=== PATIENT | male | born 1985 | race Caucasian/White ===

== ENCOUNTER 2016-07-19 14:15 | Emergency (ER) | payer OTHER ==
[~2016-07-19] VITALS: Ht 182.9 cm; Wt 101.0 kg
[~2016-07-19 14:15] MED LIST: CATAPRES0.1 MG PO; CIPRO500 MG PO; DILAUDID2 MG PO; FLEXERIL10 MG PO; FLOMAX0.4 MG PO; IBUPROFEN800 MG PO; MIRALAX17 GM PO; MOTRIN600 MG PO; MULTI-VITAMIN1 EAC3 PO; NAPROSYN500 MG PO; NAPROXEN500 MG PO; PERCOCET 5/31 TABLET PO; PHENAZOPYRIDIN200 MG PO; PRILOSEC40 MG PO; TORADOL10 MG PO; TRAZODONE HCL50 MG PO; TYLENOL WITH C1 EACH PO; ULTRAM50 MG PO; ZOFRAN ODT4 MG PO; ZOFRAN4 MG PO
[2016-07-19] MEDS ORDERED: OMEPRAZOLE40 M1 PO (14:52)
[2016-07-19 15:14] LABS: HEMATOCRIT 46.4 % (38.0-50.0); MCH 33.3 PG (29.0-34.0); MCHC 36.2 G/DL (30.0-36.0); MCV 92.1 FL (86-99); MEAN PLAT.VOLUME 8.7 uM^3 (9.0-12.4); PLATELET COUNT 245 K/uL (156-360); RBC DIS.WIDTH-CV 12.2 % (11.8-14.6); RBC DIS.WIDTH-SD 41.4 % (39-53); RED BLOOD COUNT 5.04 M/uL (4.00-5.50); WHITE BLOOD COUNT 8.3 K/uL (4.1-10.2)
[2016-07-19 15:27] LABS: CHLORIDE 104 mEq/L (99-109); POTASSIUM 3.6 mEq/L (3.7-5.4); SODIUM 139 mEq/L (136-147)
[2016-07-19 15:28] LABS: GLUCOSE 91 mg/dL (70-99)
[2016-07-19 15:30] LABS: ANION GAP 11 MEQ/L (2-14)
[2016-07-19 15:32] LABS: GFR ESTIMATE (CALCULATED) > 59 mL/min/
[2016-07-19 15:33] LABS: UREA NITROGEN (BUN) 14 mg/dL (9-23)
[2016-07-19 15:35] LABS: TROP-I INTERPRETATION NEGATIVE; TROPONIN-I < 0.01 ng/mL (0.0-0.30)
[2016-07-19 17:42] LABS: ADD MIUA? YES; BILIRUBIN NEGATIVE; BLOOD NEGATIVE; COLOR YELLOW ((YELLOW)); GLUCOSE (STRIP) NEGATIVE; KETONES NEGATIVE; LEUKOCYTES NEGATIVE; NITRITE NEGATIVE; PROTEIN (STRIP) 100; UROBILINOGEN 0.2 MG/DL (0.2-1.0)
[2016-07-19 18:19] LABS: BACTERIA 1+ /HPF; CASTS PRESENT /LPF; EPITHELIAL CELLS NONE SEEN /HPF; HYALINE CASTS 0-5 /LPF; MUCUS 1+ /LPF; RED BLOOD CELLS 0-5 /HPF (0-5); WHITE BLOOD CELLS 0-5 /HPF (0-5)
[2016-07-19] MEDS ORDERED: ZOFRAN ODT4 MG PO (18:30)
[2016-07-19] MEDS ORDERED: CITRATE OF MAG296 ML PO (18:30)
[2016-07-19] MEDS ORDERED: ULTRAM50 MG PO (18:30)
[2016-07-19 19:04] VITALS: BP 118/82
== END 2016-07-19 19:11 | disposition home or self-care (01) ==
LOC: EME 14:15
PROVIDERS: Physician Assistant
DX: R10.9 Unspecified abdominal pain (principal); K21.9 Gastro-esophageal reflux disease without esophagitis; F17.200 Nicotine dependence, unspecified, uncomplicated; Z87.442 Personal history of urinary calculi
CPT/HCPCS: 71020; 74176; 80048; 81003; 84484; 85027; 93005; 99281; 99284; J1885; J3010; J7030